=== PATIENT | female | born 1975 | race Hispanic/Latino ===

== ENCOUNTER 2017-06-04 06:32 | Day surgery (SDC) | payer BC ==
[2017-06-03 14:07] VITALS: BP 149/73
[2017-06-03 14:20] LABS: APPEARANCE,URINE Clear (CLEAR); BILIRUBIN,URINE Negative (NEGATIVE); COLOR,URINE Yellow (YELLOW); GLUCOSE, URINE (UA) Negative (NEGATIVE); KETONES,URINE Negative (NEGATIVE); LEUKOCYTE ESTERASE ,URINE Negative (NEGATIVE); NITRATE,URINE Negative (NEGATIVE); OCCULT BLOOD,URINE Negative (NEGATIVE); PH,URINE 5.5 (5.0-8.0); PROTEIN,URINE Negative (NEGATIVE)
[2017-06-03 14:21] LABS: BASOPHILS % (AUTO) 0.4 % (0.0-5.0); EOSINOPHILS % (AUTO) 1.6 % (0.0-8.0); HEMATOCRIT 34.2 % (36-48); LYMPHOCYTES % (AUTO) 35.7 % (21.0-51.0); MEAN CORPUSCULAR HEMOGLOBIN 24.1 pg (27.0-33.0); MEAN CORPUSCULAR HGB CONC 32.4 g/dL (32.0-36.0); MEAN CORPUSCULAR VOLUME 74.4 fL (79-99); MONOCYTES % (AUTO) 9.4 % (3.0-13.0); NEUTROPHILS % (AUTO) 52.9 % (40.0-77.0); PLATELET COUNT (AUTO) 262 K/uL (130-400); RED CELL DISTRIBUTION WIDTH 15.4 % (11.0-15.5)
[2017-06-03 14:34] LABS: ALBUMIN 3.2 g/dL (3.5-5.0); BILIRUBIN,DIRECT 0.1 mg/dL (0.0-0.3); BILIRUBIN,TOTAL 0.4 mg/dL (0.2-1.0); TOTAL PROTEIN, SERUM 7.6 g/dL (6.0-8.3)
[~2017-06-04] VITALS: Ht 167.6 cm; Wt 76.1 kg
[2017-06-04] VITALS (15 sets, daily range): BP systolic 128–150; BP diastolic 55–89
[~2017-06-04 06:32] MED LIST: BETA1CAP PO; CRAN500C3 PO; METH10TA7 PO; MV-M1TAB28 PO; OMEG-70 PO; PROP80CA2 PO; VANCOMYCIN 1GM+NS 250ML 250 ML IV SCH; VITA-388 PO
[2017-06-04] MEDS ORDERED: HEPARIN SODIUM 1000UNIT/ML 10ML VIAL ONE (06:52)
[2017-06-04] MEDS ORDERED: LACTATED RINGERS 1000ML 1,000 ML IV ONE (07:24)
[2017-06-04] MEDS ORDERED: GLYCOPYRROLATE 0.2 MG/ML 5 ML VIAL ONE (07:30)
[2017-06-04] MEDS ORDERED: SUCCINYLCHOLINE 200MG/10ML SYR ONE (07:30)
[2017-06-04] MEDS ORDERED: DEXAMETHASONE SOD PHOSPHATE 10MG/ML 1ML VIAL ONE (07:30)
[2017-06-04] MEDS ORDERED: PROPOFOL 10 MG/ML 20ML VIAL IV ONE (07:30)
[2017-06-04] MEDS ORDERED: LIDOCAINE PF 2% 5ML ABBOJECT ONE (07:30)
[2017-06-04] MEDS ORDERED: MIDAZOLAM HCL 1 MG/ML 2ML VIAL ONE (07:31)
[2017-06-04] MEDS ORDERED: FENTANYL CITRATE PF 50 MCG/1 ML 5ML AMP IV ONE (07:31)
[2017-06-04] MEDS ORDERED: NEOSTIGMINE METHYLSULFATE 1MG/ML IV ONE (08:46)
[2017-06-04] MEDS ORDERED: MEPERIDINE-PF 25 MG/ML SYG ONE (09:06)
== END 2017-06-04 10:40 | disposition home or self-care (01) ==
LOC: DAH 06:32
PROVIDERS: ATTEND Surgery
DX: K80.10 Calculus of gallbladder with chronic cholecystitis without obstruction (principal); K21.9 Gastro-esophageal reflux disease without esophagitis; E07.9 Disorder of thyroid, unspecified
CPT/HCPCS: 36415; 47562; 80076; 81003; 84703; 85025; 88304; A4450; A4600; A4649; C1769 ×4; J0330; J1100; J1644; J2001; J2175; J2250; J2704; J2710; J3010; J3490; J7030; J7120